=== PATIENT | male | born 1980 | race Caucasian/White ===

== ENCOUNTER 2022-09-03 13:20 | Outpatient (CLI) | payer BC, SELFPAY ==
[2022-09-03 09:57] LABS: Albumin* 4.6 g/dL (3.3-5.0); Chloride* 102 mmol/L (96-114)
[2022-09-03 09:58] LABS: Potassium* 3.9 mmol/L (3.6-5.1); Sodium* 138 mmol/L (135-149)
[2022-09-03 10:00] LABS: Alanine Aminotransferase* 42 U/L (4-50); Alkaline Phosphatase* 98 U/L (40-150); Aspartate Amino Transferase* 33 U/L (12-35); Bilirubin Total* 0.6 mg/dL (0.1-1.5); Blood Urea Nitrogen* 10 mg/dL (5-24); Carbon Dioxide* 30 mmol/L (20-32); Cholesterol* 203 mg/dL (90-199); Creatinine* 0.8 mg/dL (0.5-1.5); Estimated Glomerular Filt Rate 114 ml/min; Glucose* 89 mg/dL (60-115); Total Protein* 7.3 g/dL (6.0-8.3)
[2022-09-03 10:01] LABS: Calcium* 9.5 mg/dL (8.4-10.6); HDL Cholesterol* 54 mg/dL (>=40); LDL Cholesterol Calculated 135 mg/dL (<100); Triglycerides* 71 mg/dL (40-149)
[2022-09-03 10:33] LABS: PSA Screen* 0.64 ng/mL (0.10-4.00)
== END 2022-09-03 13:21 | disposition home or self-care (01) ==
PROVIDERS: PCP Internal Medicine; Visit Provider Internal Medicine
DX: Z00.00 Encounter for general adult medical examination without abnormal findings (principal); Z13.6 Encounter for screening for cardiovascular disorders; Z12.5 Encounter for screening for malignant neoplasm of prostate
CPT/HCPCS: 80053; 80061; 84153

== ENCOUNTER 2023-09-05 08:00 | Outpatient (CLI) | payer BC, SELFPAY | END 2023-09-05 08:01 | disposition home or self-care (01) | LOC: NFLDREF 09-09 05:34 | PROVIDERS: PCP Internal Medicine; Referring Provider Internal Medicine; Visit Provider Internal Medicine | DX: Z13.6 Encounter for screening for cardiovascular disorders (principal) | CPT/HCPCS: 80053; 80061 ==